=== PATIENT | male | born 1970 | race American Indian/Alaskan Native ===

== ENCOUNTER 2016-05-26 21:58 | Emergency (ER) | payer SELFPAY ==
[~2016-05-26] VITALS: Ht 167.6 cm; Wt 68.0 kg
[~2016-05-26 21:58] MED LIST: AMOX500T2 PO; ASPI-480 PO; BACL10TA PO; CITA20TA4 GT; DULA1.5P SQ; FENO160T8 PO; HYDR-3714 PO; INSASP10V IV; INSU100I14 SQ; INSU100V5 SQ; LISI10TA2 PO; METF-380 PO; NAPR-243 PO; NAPR550T PO; PANT40TA PO; PRM25T PO; SAXA5TAB PO; SILD50TA; SIMV20TA3 PO; TRAM-21 PO; baclofen; gabapentin; levemir; lisinopril; metformin; novolog; pantoprazole; simvastatin
--- OUTSIDE RECORDS SUMMARY | 2016-05-26 22:04 | XMS REPORT ---
Author Author EWELINA MENDOZA [facility] eClinicalWorks Address Unknown Phone Unavailable Care Team Providers Care Thread Singer Name Role Phone EWELINA MENDOZA CP Unavailable Allergies No Known Allergies Problems Problem Type Condition Code Onset Dates Condition Status Problem Diabetes E11.9 Active Problem Hypertension I10 Active Problem Major depressive disorder, single episode, severe F32.2 Active Problem Sleep apnea 780.57 Active Problem Degeneration of intervertebral disc, site unspecified 722.6 Active Problem Back pain M54.9 Active Problem Male erectile dysfunction, unspecified N52.9 Active Medications Medication Code System Code Instructions Start Date End Date Status Dosage Viagra [facility] [id number] 50 MG Orally Once a day 1 tablet as needed 30 minutes prior to intercourse Results No Known Results Summary Purpose eClinicalWorks Submission
[2016-05-27 00:22] LABS: BASOPHILS # (AUTO) 0.1 10^3/uL (0.0-0.1); BASOPHILS % (AUTO) 1 % (0-10); EOSINOPHILS # (AUTO) 0.3 10^3/uL (0.0-0.3); EOSINOPHILS % (AUTO) 3 % (0-10); LYMPHOCYTES # (AUTO) 2.2 X 10^3 (1.0-4.0); LYMPHOCYTES % (AUTO) 21 % (12-44); MEAN CORPUSCULAR HEMOGLOBIN 29 PG (25-34); MEAN CORPUSCULAR HGB CONC 36 G/DL (32-36); MEAN CORPUSCULAR VOLUME 83 FL (80-99); MEAN PLATELET VOLUME 9.5 FL (7.4-10.4); MONOCYTES # (AUTO) 0.8 X 10^3 (0.0-1.0); MONOCYTES % (AUTO) 8 % (0-12); NEUTROPHILS # (AUTO) 7.4 X 10^3 (1.8-7.8); NEUTROPHILS % (AUTO) 69 % (42-75); PLATELET COUNT 331 10^3/uL (130-400); RED BLOOD COUNT 4.69 10^6/uL (4.35-5.85); RED CELL DISTRIBUTION WIDTH 12.7 % (10.0-14.5); WHITE BLOOD COUNT 10.8 10^3/uL (4.3-11.0)
[2016-05-27 00:38] LABS: BAND NEUTROPHILS 0 %; BASOPHILS % (MANUAL) 0 %; EOSINOPHILS % (MANUAL) 2 %; LYMPHOCYTES % (MANUAL) 16 %; NEUTROPHILS % (MANUAL) 72 %
[2016-05-27 00:44] LABS: ALANINE AMINOTRANSFERASE 28 U/L (0-55); ALBUMIN 3.8 G/DL (3.2-4.5); ANION GAP 13 MMOL/L (5-14); ASPARTATE AMINO TRANSFERASE 21 U/L (5-34); BILIRUBIN,TOTAL 0.8 MG/DL (0.1-1.0); BLOOD UREA NITROGEN 16 MG/DL (7-18); BUN/CREATININE RATIO 21; CALCIUM 8.7 MG/DL (8.5-10.1); CARBON DIOXIDE 23 MMOL/L (21-32); CHLORIDE 99 MMOL/L (98-107); CREATININE SERUM 0.78 MG/DL (0.60-1.30); GFR ESTIMATED > 60; GLUCOSE 205 MG/DL (70-105); POTASSIUM 3.5 MMOL/L (3.6-5.0); SODIUM 135 MMOL/L (135-145); TOTAL PROTEIN 7.5 G/DL (6.4-8.2); hs C REACTIVE PROTEIN 5.51 MG/DL (0.00-0.50)
[2016-05-27 00:45] LABS: ERYTHROCYTE SEDIMENTATION RATE 37 MM/HR (0-15)
[2016-05-27 00:51] LABS: BILIRUBIN,URINE NEGATIVE (NEGATIVE); KETONES,URINE NEGATIVE (NEGATIVE); LEUKOCYTE ESTERASE ,URINE NEGATIVE (NEGATIVE); NITRITE,URINE NEGATIVE (NEGATIVE); PH,URINE 5 (5-9); PROTEIN,URINE 1+ (NEGATIVE); UROBILINOGEN,URINE NORMAL (NORMAL)
[2016-05-27] MEDS ORDERED: NAPROXEN 250 MG (NAPROSYN) TABLET PO STA (01:24)
[2016-05-27] MEDS ORDERED: LEVOFLOXACIN 500 MG TAB (LEVAQUIN) PO STA (01:24)
--- NOTE | 2016-05-27 01:29 | ED General ---
General Chief Complaint: General Problems/Pain Stated Complaint: L SIDE/RIB PAIN/R KNEE PAIN Nursing Triage Note: Patient advises he has been experiencing left sided rib pain and knee pain and has had a non productive cough that began last night. He advises in Feb. Trisha observed a spot on his lung but he has not followed up with anyone. Nursing Sepsis Screen: No Definite Risk Source of Information: Patient Exam Limitations: No Limitations History of Present Illness Time Seen by Provider: 01:00 Initial Comments Here with report of left-sided rib pain and overall feeling bad. He got out of [facility] a week ago. Does admit to using methamphetamine by injection 2 days ago. Reports that he is been coughing a lot and has had some fever. Denies nausea or vomiting. Had some other complaints listed in triage but not discussed with me. Also complains of some left knee pain. Usually follows up at the clinic. Timing/Duration: 3-4 Days Severity: Moderate Associated Systoms: Chest Pain Cough Fever/ChillsNo Nausea/Vomiting, No Shortness of Air, Weakness Allergies and Home Medications Allergies Coded Allergies: No Known Drug Allergies (Unverified , 07/17/13) Home Medications Amoxicillin 500 Mg Tablet #20 500 MG PO TID Prescribed by: ANNA JIMENEZ on 09/14/152305 Naproxen Sodium 550 Mg Tablet #10 550 MG PO BID PRN PRN PAIN Prescribed by: ANNA JIMENEZ on 09/14/152305 Constitutional: see HPINo chills, fever EENTM: no symptoms reported Respiratory: coughNo short of breath Cardiovascular: no symptoms reported Gastrointestinal: no symptoms reportedNo nausea, No vomiting Genitourinary: no symptoms reported Musculoskeletal: see HPI joint painNo muscle pain Skin: no symptoms reported Psychiatric/Neurological: No Symptoms Reported All Other Systems Reviewed Negative Unless Noted: Yes Past Ushbphp-Iewwxr-Jrqrjq Hx Patient Social History Alcohol Use: Denies Use Recreational Drug Use: Yes (methamphetamine) Smoking Status: Never a Smoker Recent Foreign Travel: No Contact w/Someone Who Travel: No Recent Infectious Disease Expo: No Recent Hopitalizations: No Immunizations Up To Date Tetanus Booster (TDap): Less than 5yrs PED Vaccines UTD: Yes Date of Pneumonia Vaccine: Nov 20, 2009 Date of Influenza Vaccine: Nov 23, 2013 Seasonal Allergies Seasonal Allergies: No Surgeries HX Surgeries: Yes (heart cath) Surgeries: Appendectomy, Gallbladder Respiratory Hx Respiratory Disorders: Yes Respiratory Disorders: Chronic Bronchitis Cardiovascular Hx Cardiac Disorders: Yes Cardiac Disorders: High Cholesterol, Hypertension Neurological Hx Neurological Disorders: No Reproductive System Hx Reproductive Disorders: No Genitourinary Hx Genitourinary Disorders: No Gastrointestinal Hx Gastrointestinal Disorders: No Musculoskeletal Hx Musculoskeletal Disorders: Yes Musculoskeletal Disorders: Arthritis, Chronic Back Pain Endocrine Hx Endocrine Disorders: Yes Endocrine Disorders: Diabetes, Insulin dep HEENT HX ENT Disorders: No Cancer Hx Cancer: No Psychosocial Hx Psychiatric Problems: Yes Behavioral Health Disorders: Depression Integumentary HX Skin/Integumentary Disorder: No Blood Transfusions Hx Blood Disorders: No Adverse Reaction to a Blood Tr: No Reviewed Nursing Assessment Reviewed/Agree w Nursing PMH: Yes Family Medical History Family Medial History: Cardiovascular disease 19 MOTHER (open heart in june) Diabetes mellitus 19 MOTHER FH: kidney disease G8 SISTER Hypercholesterolemia 19 MOTHER Hypertension 19 MOTHER Physical Exam Vital Signs Vital Sign - Last 12Hours 05/26/16 23:21 Pulse 86 Resp 14 B/P 109/65 Capillary Refill : Less Than 3 Seconds General Appearance: No Apparent Distress WD/WN HEENT: PERRL/EOMI Pharynx Normal Neck: Non Tender Supple Respiratory: Lungs Clear Normal Breath Sounds Other (tender to left lateral lower chest wall) Cardiovascular: Regular Rate, Rhythm No Murmur Gastrointestinal: Non Tender Soft Back: Normal Inspection No CVA Tenderness No Vertebral Tenderness Extremity: Normal Range of Motion Non Tender Other (walks without difficulty) Neurologic/Psychiatric: Alert Oriented x3 Skin: Normal Color Warm/Dry Focused Exam Lactic Acid Level Laboratory Tests Test 05/27/16 00:16 Alanine Aminotransferase (ALT/SGPT) 28U/L (0-55) Albumin 3.8G/DL (3.2-4.5) Alkaline Phosphatase 87U/L (40-136) Anion Gap 13MMOL/L (5-14) Aspartate Amino Transf (AST/SGOT) 21U/L (5-34) BUN/Creatinine Ratio 21 Blood Urea Nitrogen 16MG/DL (7-18) C-Reactive Protein High Sensitivity 5.51MG/DL (0.00-0.50) H Calcium Level 8.7MG/DL (8.5-10.1) Carbon Dioxide Level 23MMOL/L (21-32) Chloride Level 99MMOL/L (98-107) Creatinine 0.78MG/DL (0.60-1.30) Estimat Glomerular Filtration Rate > 60 Glucose Level 205MG/DL (70-105) H Potassium Level 3.5MMOL/L (3.6-5.0) L Sodium Level 135MMOL/L (135-145) Total Bilirubin 0.8MG/DL (0.1-1.0) Total Protein 7.5G/DL (6.4-8.2) Progress/Results/Core Measures Results/Orders Lab Results Laboratory Tests Test 05/27/16 00:16 05/27/16 00:35 Range/Units Alanine Aminotransferase (ALT/SGPT) 28 0-55 U/L Albumin 3.8 3.2-4.5 G/DL Alkaline Phosphatase 87 40-136 U/L Anion Gap 13 5-14 MMOL/L Aspartate Amino Transf (AST/SGOT) 21 5-34 U/L BUN/Creatinine Ratio 21 Band Neutrophils 0 % Basophils # (Auto) 0.1 0.0-0.1 10^3/uL Basophils % (Manual) 0 % Basophils (%) (Auto) 1 0-10 % Blood Morphology Comment NORMAL Blood Urea Nitrogen 16 7-18 MG/DL C-Reactive Protein High Sensitivity 5.51 H 0.00-0.50 MG/DL Calcium Level 8.7 8.5-10.1 MG/DL Carbon Dioxide Level 23 21-32 MMOL/L Chloride Level 99 98-107 MMOL/L Creatinine 0.78 0.60-1.30 MG/DL Eosinophils # (Auto) 0.3 0.0-0.3 10^3/uL Eosinophils % (Manual) 2 % Eosinophils (%) (Auto) 3 0-10 % Erythrocyte Sedimentation Rate 37 H 0-15 MM/HR Estimat Glomerular Filtration Rate > 60 Glucose Level 205 H 70-105 MG/DL Hematocrit 39 L 40-54 % Hemoglobin 13.8 13.3-17.7 G/DL Lymphocytes # (Auto) 2.2 1.0-4.0 X 10^3 Lymphocytes % (Manual) 16 % Lymphocytes (%) (Auto) 21 12-44 % Mean Corpuscular Hemoglobin 29 25-34 PG Mean Corpuscular Hemoglobin Concent 36 32-36 G/DL Mean Corpuscular Volume 83 80-99 FL Mean Platelet Volume 9.5 7.4-10.4 FL Monocytes # (Auto) 0.8 0.0-1.0 X 10^3 Monocytes % (Manual) 10 % Monocytes (%) (Auto) 8 0-12 % Neutrophils # (Auto) 7.4 1.8-7.8 X 10^3 Neutrophils % (Manual) 72 % Neutrophils (%) (Auto) 69 42-75 % Platelet Count 331 130-400 10^3/uL Potassium Level 3.5 L 3.6-5.0 MMOL/L Red Blood Count 4.69 4.35-5.85 10^6/uL Red Cell Distribution Width 12.7 10.0-14.5 % Sodium Level 135 135-145 MMOL/L Total Bilirubin 0.8 0.1-1.0 MG/DL Total Protein 7.5 6.4-8.2 G/DL White Blood Count 10.8 4.3-11.0 10^3/uL Ur Tricyclic Antidepressants Screen NEGATIVE NEGATIVE Urine Amphetamines Screen POSITIVE H NEGATIVE Urine Bacteria TRACE /HPF Urine Barbiturates Screen NEGATIVE NEGATIVE Urine Benzodiazepines Screen NEGATIVE NEGATIVE Urine Bilirubin NEGATIVE NEGATIVE Urine Cannabinoids Screen NEGATIVE NEGATIVE Urine Casts NONE /LPF Urine Clarity CLEAR Urine Cocaine Screen NEGATIVE NEGATIVE Urine Color YELLOW Urine Crystals NONE /LPF Urine Culture Indicated NO Urine Glucose (UA) 3+ H NEGATIVE Urine Ketones NEGATIVE NEGATIVE Urine Leukocyte Esterase NEGATIVE NEGATIVE Urine Methadone Screen NEGATIVE NEGATIVE Urine Methamphetamines Screen POSITIVE H NEGATIVE Urine Mucus SMALL H /LPF Urine Nitrite NEGATIVE NEGATIVE Urine Opiates Screen NEGATIVE NEGATIVE Urine Oxycodone Screen NEGATIVE NEGATIVE Urine Phencyclidine Screen NEGATIVE NEGATIVE Urine Propoxyphene Screen NEGATIVE NEGATIVE Urine Protein 1+ H NEGATIVE Urine RBC NONE /HPF Urine RBC (Auto) NEGATIVE NEGATIVE Urine Specific B[place]orn 1.015 L 1.016-1.022 Urine Squamous Epithelial Cells 2-5 /HPF Urine Urobilinogen NORMAL NORMAL MG/DL Urine WBC NONE /HPF Urine pH 5 5-9 My Orders Orders-NE BURNETT MD Chest Pa/Lat (2 View) (05/27/16 00:04) Cbc And Manual Diff (05/27/16 00:04) Comprehensive Metabolic Panel (05/27/16 00:04) Ua Culture If Indicated (05/27/16 00:04) Drug Screen Stat (Urine) (05/27/16 00:04) Erythrocyte Sedimentation Rate (05/27/16 00:04) Hs C Reactive Protein (05/27/16 00:04) Levofloxacin Tablet (Levaquin Tablet) (05/27/16 01:24) Naproxen Tablet (Naprosyn Tablet) (05/27/16 01:24) Vital Signs/I&O Vital Sign - Last 12Hours 05/26/16 23:21 Pulse 86 Resp 14 B/P 109/65 Blood Pressure Mean: 80 Progress Note : Progress Note Seen and evaluated. Checks x-ray, labs and UA ordered. UDS ordered. I did discuss with the patient about methamphetamine use. Chest x-ray shows concerning finding for possible basilar pneumonia. Levaquin 500 mg by mouth. Naprosyn 500 mg by mouth for pain. I did discuss the case with Dr. Anderson. She will assist in cosigning prescriptions at clinic for antibiotics and Naprosyn. Discharged home with return precautions. Patient verbalize understanding instructions and agreement with plan. Diagnostic Imaging Diagonstic Imaging: Xray Plain Films/CT/US/NM/MRI: chest Comments Left basilar infiltrate Reviewed: Reviewed by Me Departure Impression Impression: Primary Impression: Pneumonia Qualified Code: J18.1 - Lobar pneumonia, unspecified organism Additional Impression: Knee pain, left Qualified Code: M25.562 - Pain in left knee Disposition: 01 HOME, SELF-CARE Condition: Improved Departure-Patient Inst. Decision time for Depature: 01:45 Referrals: EWELINA MENDOZA MD (PCP/Family) Primary Care Physician Patient Instructions: Community-Acquired Pneumonia in Adults, Knee Pain (DC) Add. Discharge Instructions: All discharge instructions reviewed with patient and/or family. Voiced understanding. Go to clinic in the morning to get prescriptions filled. Make appointment at clinic for one week. Return for worse pain, fever, vomiting, weakness, breathing problems or other concerns as needed. Do not use methamphetamine. Drink plenty of fluids. Take medications as directed. Scripts Naproxen (Naprosyn)500 Mg [id number] Mg PO BID PRN PAIN #30 TAB Prov:NE BURNETT MD 05/27/16 Levofloxacin 500 Mg [id number] Mg PO DAILY #6 TAB Prov:NE BURNETT MD 05/27/16 Copy Copies To 1: HEATHER ANDERSON MD, TIMOTHY D MD May 27, 2016 01:29
[2016-05-27] MEDS ORDERED: LEVO500T80 PO (01:46)
[2016-05-27] MEDS ORDERED: NAPR500T PO (01:46)
[2016-05-27 01:49] VITALS: BP 100/70
--- NOTE | 2016-05-27 07:33 | Diagnostic Imaging Report ---
EXAM: CHEST PA/LAT (2 VIEW) INDICATION: Cough. Left rib pain. COMPARISON: Chest radiograph 04/05/2015 FINDINGS: Normal heart size and pulmonary vascularity. Subtle airspace opacity in the left lower lobe posteriorly, seen best on the lateral view. No pleural effusion or pneumothorax. Degenerative changes in the spine. Cholecystectomy clips. IMPRESSION: Subtle airspace opacity in the left lower lobe posteriorly suspicious for pneumonitis. Dictated by: Dictated on workstation # [id number]
== END 2016-05-27 01:49 | disposition home or self-care (01) ==
LOC: EDUNIT# 21:58 → ER 22:00
DX: J18.9 Pneumonia, unspecified organism (principal); M25.562 Pain in left knee; F15.10 Other stimulant abuse, uncomplicated; I10 Essential (primary) hypertension
CPT/HCPCS: 36415; 71020; 80053; 80306; 81000; 85007; 85027; 85652; 86141; 99283

== ENCOUNTER 2016-09-10 17:32 | Emergency (ER) | payer SELFPAY ==
[~2016-09-10] VITALS: Ht 172.7 cm; Wt 102.1 kg
[~2016-09-10 17:32] MED LIST changes: +LEVO500T80 PO; +NAPR500T PO
[2016-09-10] MEDS ORDERED: IBUPROFEN 800 MG (MOTRIN) TAB PO STA (18:38)
--- NOTE | 2016-09-10 18:38 | ED Upper Extremity ---
General Chief Complaint: Upper Extremity Stated Complaint: PT FELL/RT HAND PAIN/LT SHOULDER PAIN Nursing Triage Note: pt reports about 4 hours travel pta he fell on a dumpster and injured his r hand and l shoulder. pt denies hitting head or loc. Nursing Sepsis Screen: No Definite Risk Source: patient, other (friend) Exam Limitations: no limitations History of Present Illness Time seen by provider: 18:33 Initial Comments Patient presents approximately 5 hours after a fall while walking into a dumpster where he punched the dumpster with his right hand and landed against his left shoulder is having a significant amount of pain in his right hand and left shoulder with some swelling in his right hand. He is not having any nausea vomiting or diarrhea. He has not been drinking or using any drugs. He states he used to drink 20 years ago but not now. He does not smoke. He is not in a fight and had no trauma or wounds elsewhere. Allergies and Home Medications Allergies Coded Allergies: No Known Drug Allergies (Unverified , 07/17/13) Home Medications Amoxicillin 500 Mg Tablet, 500 MG PO TID, #20 Prescribed by: ANNA JIMENEZ on 09/14/152305 Levofloxacin 500 Mg Tablet, 500 MG PO DAILY, #6 Prescribed by: NE BURNETT on 05/27/16 0146 Naproxen 500 Mg Tablet, 500 MG PO BID PRN for PAIN, #30 Prescribed by: NE BURNETT on 05/27/16 0146 Naproxen Sodium 550 Mg Tablet, 550 MG PO BID PRN for PAIN, #10 Prescribed by: ANNA JIMENEZ on 09/14/156 Constitutional: No chills, No diaphoresis Respiratory: No cough, No phlegm Cardiovascular: No chest pain, No edema Gastrointestinal: No abdominal pain, No constipation, No nausea Genitourinary: No dysuria, No frequency, No pain Skin: No pruritus, No rash Psychiatric/Neurological: Denies Anxiety, Denies Depressed Past Cgulvhj-Ryteil-Ywtebu Hx Patient Social History Alcohol Use: Denies Use Recreational Drug Use: No Smoking Status: Never a Smoker Recent Foreign Travel: No Contact w/Someone Who Travel: No Recent Infectious Disease Expo: No Recent Hopitalizations: No Immunizations Up To Date Tetanus Booster (TDap): Less than 5yrs PED Vaccines UTD: Yes Date of Pneumonia Vaccine: Nov 20, 2009 Date of Influenza Vaccine: Nov 23, 2013 Seasonal Allergies Seasonal Allergies: No Surgeries HX Surgeries: Yes (heart cath) Surgeries: Appendectomy, Gallbladder Respiratory Hx Respiratory Disorders: Yes Respiratory Disorders: Chronic Bronchitis Cardiovascular Hx Cardiac Disorders: Yes Cardiac Disorders: High Cholesterol, Hypertension Neurological Hx Neurological Disorders: No Reproductive System Hx Reproductive Disorders: No Genitourinary Hx Genitourinary Disorders: No Gastrointestinal Hx Gastrointestinal Disorders: No Musculoskeletal Hx Musculoskeletal Disorders: Yes Musculoskeletal Disorders: Arthritis, Chronic Back Pain Endocrine Hx Endocrine Disorders: Yes Endocrine Disorders: Diabetes, Insulin dep HEENT HX ENT Disorders: No Cancer Hx Cancer: No Psychosocial Hx Psychiatric Problems: Yes Behavioral Health Disorders: Depression Integumentary HX Skin/Integumentary Disorder: No Blood Transfusions Hx Blood Disorders: No Adverse Reaction to a Blood Tr: No Family Medical History Family Medial History: Cardiovascular disease 19 MOTHER (open heart in june) Diabetes mellitus 19 MOTHER FH: kidney disease G8 SISTER Hypercholesterolemia 19 MOTHER Hypertension 19 MOTHER Physical Exam Vital Signs Vital Sign - Last 12Hours 09/10/16 18:27 Temp 99.4 Pulse 94 Resp 16 B/P (MAP) 124/114 Pulse Ox 98 Capillary Refill : Less Than 3 Seconds General Appearance: WD/WN, no apparent distress HEENT: PERRL/EOMI, pharynx normal Neck: non-tender, normal inspection Cardiovascular: normal peripheral pulses, regular rate, rhythm Respiratory: chest non-tender, lungs clear Gastrointestinal: normal bowel sounds, non tender Back: normal inspection, no vertebral tenderness Shoulder: normal inspection, normal ROM, No deformity, No ecchymosis, soft tissue tenderness (left) Elbow/Forearm: normal inspection, non-tender Wrist: No bone tenderness, No deformity, Yes soft tissue tenderness (right) Hand: laceration, limited ROM, nail injury, soft tissue tenderness (right), swelling Neurologic/Tendon: normal sensation, normal motor functions, normal tendon functions, responds to pain, no evidence tendon injury Neurologic/Psychiatric: no motor/sensory deficits, alert, oriented x 3 Skin: warm/dry, ecchymosis (right hand) Progress/Results/Core Measures Results/Orders My Orders Orders - POWER ARELLANO Shoulder, Left, 3 Views (09/10/16 18:38) Clavicle, Left (09/10/16 18:38) Wrist, Right, 3 Views Or More (09/10/16 18:38) Hand, Right, 3 Views (09/10/16 18:38) Ibuprofen Tablet (Motrin Tablet) (09/10/16 18:38) Vital Signs/I&O Vital Sign - Last 12Hours 09/10/16 18:27 Temp 99.4 Pulse 94 Resp 16 B/P (MAP) 124/114 Pulse Ox 98 Blood Pressure Mean: 117 Progress Note : Time: 21:06 Progress Note Boxer fracture; mildly dorsally angulated so we'll place him in a right ulnar gutter splint and have him call for states or so in the morning. Diagnostic Imaging Diagonstic Imaging: Xray Plain Films/CT/US/NM/MRI: other (left shoulder and left clavicle) Comments [facility] [place], [place] NAME: ADE THOMASON [facility] REC#: [id number] PT STATUS: REG ER : 1970 PHYSICIAN: POWER ARELLANO MD ADMIT DATE: 09/10/16/ER Draft Date of Exam:09/10/16 CLAVICLE, LEFT INDICATION: Fall, trauma. EXAMINATION: Left clavicle, 09/10/2016. FINDINGS: Two views of the clavicle. The acromioclavicular joint appears to be intact. Spurring is noted but no dislocations or fractures are visualized. The linear density at the greater tuberosity is seen and described on the separate shoulder films. IMPRESSION: No acute fracture along the clavicle with degenerative findings as discussed above. Dictated on workstation # [id number] Dict: 09/10/161931 Trans: 09/10/161941 [facility] [id number] Interpreted by: ALEXA ORO MD Electronically signed by: [facility] [place], [place] NAME: ADE THOMASON [facility] REC#: [id number] PT STATUS: REG ER : 1970 PHYSICIAN: POWER ARELLANO MD ADMIT DATE: 09/10/16/ER Draft Date of Exam:09/10/16 SHOULDER, LEFT, 3 VIEWS INDICATION: Fell 4 hours ago. Hit shoulder. EXAMINATION: Left shoulder dated 09/10/2016 FINDINGS: Three views of the shoulder Linear density immediately adjacent to the greater tuberosity is noted which appears to represent likely calcific tendinitis, less likely small avulsion fracture fragment. The remaining humerus is unremarkable. The acromioclavicular joint demonstrates some narrowing and spurring. The visualized left lung is clear. IMPRESSION: 1. Degenerative findings as described with a linear density at the greater tuberosity nonspecific; see above discussion. Dictated on workstation # [id number] Dict: 09/10/161929 Trans: 09/10/161938 [facility] [id number] Interpreted by: ALEXA ORO MD Electronically signed by: Reviewed: Reviewed by Me Diagonstic Imaging: Xray Plain Films/CT/US/NM/MRI: hand (right wrist), other Comments Distal metacarpal fracture with mild dorsal angulation. No point tenderness at the site of an old fracture on the distal interphalangeal joint noted in radiology report. [facility] [place], [place] NAME: ADE THOMASON Jaelyn [facility] REC#: [id number] PT STATUS: REG ER : 1970 PHYSICIAN: POWER ARELLANO MD ADMIT DATE: 09/10/16/ER Draft Date of Exam:09/10/16 HAND, RIGHT, 3 VIEWS INDICATION: Fell about four hours ago. Right hand pain. EXAMINATION: Right hand dated 09/10/2016. FINDINGS: Three views of the hand. There is a fracture involving the distal aspect of the fifth metacarpal. This does not definitely extend into the adjacent intra-articular joint space. The fracture site demonstrates mild apex dorsal angulation. No definite other fractures are seen. Degenerative findings are seen throughout the mid carpal bones and at the first metacarpophalangeal joint with large spurs at this joint also noted. IMPRESSION: 1. Acute-appearing fracture at the distal aspect of the fifth metacarpal with remaining osseous structures demonstrating chronic change as discussed above. There is an osseous fragment at the dorsum of the distal interphalangeal joint of the fifth digit likely old, correlate for any point tenderness. Dictated on workstation # [id number] Dict: 09/10/161930 Trans: 09/10/161938 [id number] Interpreted by: ALEXA ORO MD Electronically signed by: [facility], [facility] [place], [place] NAME: ADE THOMASON [facility] REC#: [id number] PT STATUS: REG ER : 1970 PHYSICIAN: POWER ARELLANO MD ADMIT DATE: 09/10/16/ER Draft Date of Exam:09/10/16 WRIST, RIGHT, 3 VIEWS OR MORE INDICATION: Fell about 4 hours ago. Hit shoulder. Wrist and hand pain. EXAMINATION: Right wrist and hand, 09/10/2016. FINDINGS: Three views of the hand and wrist. There is a fracture through the distal aspect of the fifth metacarpal. This appears fairly well aligned along its visualized aspects on this examination. Degenerative findings are seen throughout the mid carpal bones with spurring noted. Severe degenerative change is seen at the first metacarpophalangeal joint space. IMPRESSION: Acute appearing fracture involving the distal fifth metacarpal with other findings as described. Dictated on workstation # [id number] Dict: 09/10/161928 Trans: 09/10/161940 [facility] [id number] Interpreted by: ALEXA ORO MD Electronically signed by: Reviewed: Reviewed by Me Consults Consults : Consulting Physician: SARA BURRIS MD Consults Notes 2044: Called dropped. Made contact at 210. Recommends the patient call for states or so in the morning and get an appointment sometime within the next week. Ulnar gutter would be okay. Pain management. Departure Impression Impression: Primary Impression: Fracture of hand Qualified Codes: S62.91XA - Unspecified fracture of right wrist and hand, initial encounter for closed fracture Additional Impression: Left shoulder pain Qualified Codes: M25.512 - Pain in left shoulder Disposition: 01 HOME, SELF-CARE Condition: Improved Departure-Patient Inst. Decision time for Depature: 21:07 Referrals: NO,LOCAL PHYSICIAN (PCP) Primary Care Physician Patient Instructions: Hand Fracture (DC) Add. Discharge Instructions: You have a fracture in your right hand just below your pinky but has been stabilized with a splint. You will need to call for state [facility] in the morning after 9:00 AM and requests an appointment with them for a boxer's fracture. You should probably try and get in with them sometime within a week. Their phone number is [phone]. For pain you should place ice over the hand up to 4 times daily for 20 minutes at a time. Elevate the hand, wear the splint and use Tylenol or ibuprofen. Tylenol 1000 mg 3 times a day and he can also use ibuprofen 800 mg 3 times a day. If this is not sufficient then you can also use the [place]. If you use [place] it may cause constipation so you should also use a laxative such as MiraLAX.. All discharge instructions reviewed with patient and/or family. Voiced understanding. Scripts Hydrocodone/Acetaminophen (Hydrocodon -Acetaminophen 5-325) 1 Each Tablet 1 EACH PO Q6H Y for BREAKTHROUGH PAIN, #15 TAB 0 Refills Prov: POWER ARELLANO 09/10/16 POWER ARELLANO Sep 10, 2016 18:38
--- OUTSIDE RECORDS SUMMARY | 2016-09-10 19:10 | XMS REPORT ---
Author Author EWELINA MENDOZA [facility] eClinicalWorks Address Unknown Phone Unavailable Care Team Providers Care Dietetics Director Name Role Phone EWELINA MENDOZA CP Unavailable [...] Start Date End Date Status Dosage Viagra [facility] [id number] 50 MG Orally Once a day 1 tablet as needed 30 minutes prior to intercourse Results No Known Results Summary Purpose eClinicalWorks Submission
--- OUTSIDE RECORDS SUMMARY | 2016-09-10 19:10 | XMS REPORT ---
Author Author IVONNE GOMEZ [facility] eClinicalWorks Address Unknown Phone Unavailable Care Team Providers Care Computer Lab Assistant Name Role Phone IVONNE GOMEZ CP Unavailable Allergies No Known Allergies Problems Problem Type Condition Code Onset Dates Condition Status Problem Pain in joint, shoulder region 719.41 Active Problem Other chronic pain 338.29 Active Problem Rheumatoid arthritis 714.0 Active Problem Folliculitis 704.8 Active Problem Intermittent chest pain 786.50 Active Problem Midline low back pain with sciatica, sciatica laterality unspecified M54.40 Active Problem Degeneration of intervertebral disc, site unspecified 722.6 Active Problem Lumbago 724.2 Active Problem Sleep apnea 780.57 Active Problem Diabetes type 2, controlled 250.00 Active Medications No Known Medications Results No Known Results Summary Purpose eClinicalWorks Submission
--- OUTSIDE RECORDS SUMMARY | 2016-09-10 19:11 | XMS REPORT ---
Author Author EWELINA MENDOZA Organization eClinicalWorks Address Unknown Phone Unavailable Care Team Providers Care J2Ee Engineer Name Role Phone EWELINA MENDOZA Unavailable Allergies No Known Allergies Problems Problem Type Condition Code Onset Dates Condition Status Problem Diabetes E11.9 Active Problem Hypertension I10 Active Problem Major depressive disorder, single episode, severe F32.2 Active Problem Sleep apnea 780.57 Active Problem Degeneration of intervertebral disc, site unspecified 722.6 Active Problem Back pain M54.9 Active Problem Male erectile dysfunction, unspecified N52.9 Active Medications No Known Medications Results No Known Results Summary Purpose eClinicalWorks Submission
--- OUTSIDE RECORDS SUMMARY | 2016-09-10 19:11 | XMS REPORT ---
Author EWELINA Santamaria [facility] eClinicalWorks Address Unknown Phone Unavailable Care Team Providers Care Local Operator Name Role Phone EWELINA MENDOZA CP Unavailable Allergies, Adverse Reactions, Alerts Substance Reaction Event Type N.K.D.A. Info Not Available Non Drug Allergy Problems Problem Type Condition Code Onset Dates Condition Status Assessment Hypertension I10 Active Assessment Back pain M54.9 Active Problem Hypertension I10 Active Problem Back pain M54.9 Active Problem Diabetes E11.9 Active Problem Degeneration of intervertebral disc, site unspecified 722.6 Active Assessment Diabetes E11.9 Active Problem Male erectile dysfunction, unspecified N52.9 Active Problem Sleep apnea 780.57 Active Medications Medication Code System Code Instructions Start Date End Date Status Dosage Fenofibrate [facility] [address]-67 54 mg July 27, 2013 take 1 tablet ( 54 mg) by oral route once daily pantoprazole [facility] 0 40 mg July 27, 2013 take 1 tablet by Oral route 1 time per day Trulicity [facility] [address]-50 1.5 MG/0.5ML Subcutaneous 0.5 ml Hydrocodone-Acetaminophen [facility] [address]-26 5-325 MG Orally 2 times a day, prn Apr 06, 2015 1 tablet as needed Metformin HCl [facility] [address]-70 1000 MG Orally Twice a day 1 tablet with meals NovoLog [facility] [address]-10 100 unit/mL May 29, 2014 30-40 Units 3 times per day with meals Aspirin [facility] [address]-38 81 mg July 27, 2013 take 1 tablet (81 mg ) by oral route once daily citalopram [facility] 0 20 mg July 27, 2013 take 1 tablet (20 mg) by oral route once daily Lisinopril [facility] [address]-51 20 mg July 27, 2013 take 1 tablet (20 mg) by oral route once daily Viagra [facility] [address]-20 50 MG Orally Once a day Feb 22, 2015 1 tablet as needed 30 minutes prior to intercourse Levemir [facility] [address]-78 100 UNIT/ML May 29, 2014 83 Units 2 times per day Simvastatin [facility] [address]-32 40 mg July 27, 2013 take 1 tablet ( 40 mg) by oral route once daily in the evening Procedures Procedure Coding System Code Date MICROALBUMIN, SEMIQUANT CPT-4 96426 Apr 06, 2015 Office Visit, Est Pt., Level 3 CPT-4 65164 Apr 06, 2015 GLYCATED HEMOGLOBIN TEST CPT-4 14784 Apr 06, 2015 Vital Signs Date/Time: Apr 06, 2015 Temperature 97.7 F Weight 235.0 lbs Height 68 in BMI 35.73 Index Blood Pressure Diastolic 70 mmHg Blood Pressure Systolic 122 mmHg Cardiac Monitoring Heart Rate 88 bpm Results Name Result Date Reference Range Unit Abnormality Flag A1C (IN HOUSE) ----A1C IN HOUSE 9.1 20150406 4.3 - 5.6 % ----Previous A1c 8.0 [id number] ----Lot [id number] ----Exp date 20150406 MICROALBUMIN, URINE (IN HOUSE) ----A:C (IN HOUSE) <30mg/g [id number] ----CRE 300mg/dL [id number] ----Color [place] [id number] ----ALB 80mg/L [id number] ----Exp date [id number] ----Clarity Clear [id number] ----Lot # [id number] Summary Purpose eClinicalWorks Submission
--- OUTSIDE RECORDS SUMMARY | 2016-09-10 19:11 | XMS REPORT ---
Author Author ISIAH BELLO [facility] eClinicalWorks Address Unknown Phone Unavailable Care Team Providers Care Box Lining Machine Operator Name Role Phone ISIAH BELLO CP Unavailable Allergies No Known Allergies Problems Problem Type Condition Code Onset Dates Condition Status Problem Rheumatoid arthritis 714.0 Active Problem Lumbago 724.2 Active Problem Other chronic pain 338.29 Active Assessment Male erectile dysfunction, unspecified N52.9 Active Problem Pain in joint, shoulder region 719.41 Active Problem Midline low back pain with sciatica, sciatica laterality unspecified M54.40 Active Problem Folliculitis 704.8 Active Problem Male erectile dysfunction, unspecified N52.9 Active Problem Diabetes type 2, controlled 250.00 Active Problem Degeneration of intervertebral disc, site unspecified 722.6 Active Problem Intermittent chest pain 786.50 Active Problem Sleep apnea 780.57 Active Medications Medication Code System Code Instructions Start Date End Date Status Dosage Viagra [facility] [address]-89 50 MG Orally Once a day Feb 22, 2015 1 tablet as needed 30 minutes prior to intercourse Results No Known Results Summary Purpose eClinicalWorks Submission
--- OUTSIDE RECORDS SUMMARY | 2016-09-10 19:11 | XMS REPORT ---
Author Author ISIAH BELLO [facility] eClinicalWorks Address Unknown Phone Unavailable Care Team Providers Care Supervisor Beet End Name Role Phone ISIAH BELLO CP Unavailable Allergies No Known Allergies Problems Problem Type Condition ICD-9 Code Onset Dates Condition Status Problem Rheumatoid arthritis 714.0 Active Problem Pain in joint, shoulder region 719.41 Active Problem Intermittent chest pain 786.50 Active Problem Sleep apnea 780.57 Active Problem Folliculitis 704.8 Active Problem Lumbago 724.2 Active Problem Other chronic pain 338.29 Active Problem Diabetes type 2, controlled 250.00 Active Problem Degeneration of intervertebral disc, site unspecified 722.6 Active Medications Medication Code System Code Instructions Start Date End Date Status Dosage Levemir [facility] [address]-48 100 UNIT/ML May 29, 2014 83 Units 2 times per day Results No Known Results Summary Purpose eClinicalWorks Submission
--- OUTSIDE RECORDS SUMMARY | 2016-09-10 19:11 | XMS REPORT ---
Author Author ISIAH BELLO [facility] eClinicalWorks Address Unknown Phone Unavailable Care Team Providers Care Box Sealing Inspector Name Role Phone ISIAH BELLO CP Unavailable [...]
--- OUTSIDE RECORDS SUMMARY | 2016-09-10 19:12 | XMS REPORT ---
Author Author ISIAH BELLO [facility] eClinicalWorks Address Unknown Phone Unavailable Care Team Providers Care Manager Security And Safety Name Role Phone ISIAH BELLO CP Unavailable Allergies No Known Allergies Problems Problem Type Condition Code Onset Dates Condition Status Problem Pain in joint, shoulder region 719.41 Active Problem Other chronic pain 338.29 Active Problem Rheumatoid arthritis 714.0 Active Assessment Midline low back pain with sciatica, sciatica laterality unspecified M54.40 Active Problem Folliculitis 704.8 Active Problem Intermittent [...]
--- OUTSIDE RECORDS SUMMARY | 2016-09-10 19:12 | XMS REPORT ---
Author Author ISIAH BELLO [facility] eClinicalWorks Address Unknown Phone Unavailable Care Team Providers Care Kitchen Operator Name Role Phone ISIAH BELLO CP [...] intervertebral disc, site unspecified 722.6 Active Medications No Known Medications Results No Known Results Summary Purpose eClinicalWorks Submission
--- OUTSIDE RECORDS SUMMARY | 2016-09-10 19:13 | XMS REPORT | Continuity of Care Document ---
Author Author [facility] Address Unknown Phone Unavailable Allergies Active Description Code Type Severity Reaction Onset Reported/Identified Relationship to Patient Clinical Status Yes NO NAME AVAILABLE [id number] DRUG N/A N/A Yes No Known Drug Allergies [id number] Drug Allergy Unknown N/ A 07/17/2013 Medications Medication Packaging Start Date Stop Date Route Dosage Sig ALUM T MAG HYDROXIDE-SIMETH 200-200-20 MG/5ML PO SUSP 06/17/2016 Oral 30 4 TIMES DAILY PRN TRAZODONE HCL 100 MG PO TABS 06/17/2016 Oral 100 BEDTIME PRN INFLUENZA VAC SPLIT QUAD 0.5 ML IM KAYLI 06/17/2016 Intramuscular 0.5 Prior to discharge OLANZAPINE 10 MG PO TBDP 06/17/2016 Oral 10 2 TIMES DAILY PRN ACETAMINOPHEN 325 MG PO TABS 06/17/2016 Oral 650 EVERY 6 HOURS PRN MAGNESIUM HYDROXIDE 400 MG/5ML PO SUSP 06/17/2016 Oral 30 DAILY PRN QUETIAPINE FUMARATE 25 MG PO TABS 06/17/2016 Oral 25 4 TIMES DAILY PRN GLUCAGON HCL (DIAGNOSTIC) 1 MG IJ SOLR 06/17/2016 Intramuscular 1 PRN DEXTROSE 50 % IV SOLN 06/17/2016 Intravenous 50 PRN GLUCOSE 40 % PO GEL 06/17/2016 Oral 15 PRN ATORVASTATIN CALCIUM 10 MG PO TABS 06/17/2016 Oral 10 DAILY INSULIN DETEMIR 100 UNIT/ML SC SOPN 06/17/2016 Subcutaneous 10 2 TIMES DAILY METFORMIN HCL 500 MG PO TABS 06/18/2016 Oral 1000 2 TIMES DAILY WITH MEALS FLUOXETINE HCL 20 MG PO CAPS 06/18/2016 Oral 20 DAILY LISINOPRIL 10 MG PO TABS 06/18/2016 Oral 5 DAILY ASPIRIN 81 MG PO CHEW 06/18/2016 Oral 81 DAILY PANTOPRAZOLE SODIUM 40 MG PO TBEC 06/18/2016 Oral 40 DAILY INSULIN ASPART 100 UNIT/ML SC SOPN 06/18/2016 Subcutaneous 4 TIMES DAILY BEFORE MEALS & NIGHTLY INSULIN DETEMIR 100 UNIT/ML SC SOPN 06/18/2016 Subcutaneous 15 2 TIMES DAILY FLUOXETINE HCL 20 MG PO CAPS 06/19/2016 Oral 40 DAILY TRAZODONE HCL 50 MG PO TABS 06/19/2016 Oral 50 BEDTIME PRN OLANZAPINE 5 MG PO TBDP 06/19/2016 Oral 5 2 TIMES DAILY PRN INSULIN DETEMIR 100 UNIT/ML SC SOPN 06/19/2016 Subcutaneous 20 2 TIMES DAILY INSULIN DETEMIR 100 UNIT/ML SC SOPN 06/20/2016 Subcutaneous 8 ONCE INSULIN ASPART PROT T ASPART (70-30) 100 UNIT/ML SC SUPN 06/20/2016 Subcutaneous 34 2 TIMES DAILY BEFORE MEALS INSULIN DETEMIR 100 UNIT/ML SC SOPN 06/20/2016 Subcutaneous 28 2 TIMES DAILY INSULIN ASPART PROT T ASPART (70-30) 100 UNIT/ML SC [facility] 06/21/2016 Subcutaneous 38 2 TIMES DAILY BEFORE MEALS INFLUENZA VAC SPLIT QUAD 0.5 ML IM KAYLI 06/22/2016 Intramuscular 0.5 ONCE INSULIN ASPART PROT T ASPART (70-30) 100 UNIT/ML SC [facility] 06/23/2016 Subcutaneous 38 DAILY WITH DINNER QUETIAPINE FUMARATE 25 MG PO TABS 06/23/2016 Oral 50 BEDTIME INSULIN ASPART 100 UNIT/ML SC SOPN 06/24/2016 Subcutaneous 43 DAILY WITH BREAKFAST INSULIN ASPART PROT T ASPART (70-30) 100 UNIT/ML SC SUPN 06/24/2016 Subcutaneous 43 DAILY WITH BREAKFAST QUETIAPINE FUMARATE 100 MG PO TABS 06/24/2016 Oral 100 BEDTIME Problems Date Dx Coded Attending Type Code Diagnosis Diagnosed By 04/26/2013 TRIP HERNANDEZ APRN N 250.01 DIABETES MELLITUS WITHOUT MENTION OF COMPLICATION TYPE I [JUVENILE TYPE] NOT STATED UNCONTROLLED 04/26/2013 TRIP HERNANDEZ APRN 714.0 RHEUMATOID ARTHRITIS 04/26/2013 BHUMI DUBOIS APRN 250.01 DIABETES MELLITUS WITHOUT MENTION OF COMPLICATION TYPE I [JUVENILE TYPE] NOT STATED UNCONTROLLED 04/26/2013 BHUMI DUBOIS APRN 714.0 RHEUMATOID ARTHRITIS 04/26/2013 IVONNE GOMEZ DO 250.01 DIABETES MELLITUS WITHOUT MENTION OF COMPLICATION TYPE I [JUVENILE TYPE] NOT STATED UNCONTROLLED 04/26/2013 IVONNE GOMEZ DO 714.0 RHEUMATOID ARTHRITIS 04/26/2013 IVONNE GOMEZ DO 250.01 DIABETES MELLITUS WITHOUT MENTION OF COMPLICATION TYPE I [JUVENILE TYPE] NOT STATED UNCONTROLLED 04/26/2013 GOMEZ DO IVONNE K 714.0 RHEUMATOID ARTHRITIS 04/26/2013 PATRICIA LOVING IVONNE K 250.01 DIABETES MELLITUS WITHOUT MENTION OF COMPLICATION TYPE I [JUVENILE TYPE] NOT STATED UNCONTROLLED 04/26/2013 GOMEZ DO IVONNE K 714.0 RHEUMATOID ARTHRITIS 07/17/2013 GOPAL VALENTINE APRN Ot 780.79 OTH MALAISE FATIGUE 07/27/2013 BHUMI DUBOIS APRN 719.41 PAIN IN JOINT INVOLVING SHOULDER REGION 07/27/2013 GOMEZ DO, IVONNE K 719.41 PAIN IN JOINT INVOLVING SHOULDER REGION 07/27/2013 GOMEZ DO, IVONNE K 719.41 PAIN IN JOINT INVOLVING SHOULDER REGION 07/27/2013 GOMEZ DO, IVONNE K 719.41 PAIN IN JOINT INVOLVING SHOULDER REGION 12/12/2013 GOMEZ DO, IVONNE K 338.29 OTHER CHRONIC PAIN 12/12/2013 GOMEZ DO, IVONNE K 724.2 LUMBAGO 12/12/2013 GOMEZ DO IVONNE K 338.29 OTHER CHRONIC PAIN 12/12/2013 GOMEZ DO IVONNE K 724.2 LUMBAGO 12/12/2013 GOMEZ DO, IVONNE K 338.29 OTHER CHRONIC PAIN 12/12/2013 GOMEZ DO, IVONNE K 724.2 LUMBAGO 04/16/2014 JERSON LOVING YURI K Ot 250.02 DIAB OPAL WO COMPL, TYPE II OR UNSPEC TY 04/16/2014 JERSON LOVING YURI K Ot 724.2 LUMBAGO 04/16/2014 JERSON LOVING YURI K Ot V15.81 HX OF PAST NONCOMPLIANCE 05/08/2014 ROSITA GOMEZ DOA K 250.00 DIABETES MELLITUS WITHOUT MENTION OF COMPLICATION TYPE II OR UNSPECIFIED TYPE NOT STATED UNCONTROLLED 05/08/2014 GOMEZ DO IVONNE K 722.6 DEGENERATION OF INTERVERTEBRAL DISC SITE UNSPECIFIED 06/05/2014 ALEK ROMERO Ot 719.41 06/22/2014 ALEK ROMERO Ot 719.41 06/23/2014 MARGARITA CARTY MD Ot 722.52 LUMB/LUMBOSAC DISC DEGEN 08/11/2014 ALEK ROMERO Ot 719.41 08/11/2014 ALEK ROMERO Ot 719.41 08/13/2014 JULIOCESAR MCNEAL MD Ot 250.00 DIAB OPAL WO COMPL, TYPE II OR UNSPEC TY 08/13/2014 JULIOCESAR MCNEAL MD Ot 278.01 MORBID OBESITY 08/13/2014 JULIOCESAR MCNEAL MD Ot 401.9 HYPERTENSION NOS 08/13/2014 JULIOCESAR MCNEAL MD Ot 722.52 LUMB/LUMBOSAC DISC DEGEN 08/13/2014 JULIOCESAR MCNEAL MD Ot 780.57 UNSPECIFIED SLEEP APNEA 08/13/2014 JULIOCESAR MCNEAL MD Ot 786.59 CHEST PAIN NEC 08/13/2014 JULIOCESAR MCNEAL MD Ot V58.67 LONG-TERM (CURRENT) USE OF INSULIN 08/13/2014 JULIOCESAR MCNEAL MD, Ot V58.69 OTH MED,LT,CURRENT USE 08/13/2014 JULIOCESAR MCNEAL MD Ot V85.41 BODY MASS INDEX 40.0-44.9, ADULT 08/14/2014 ALEK ROMERO Ot 719.41 10/05/2014 SAWYERCHRISTIAN WILLOUGHBY DO Ot 327.23 OBSTRUCTIVE SLEEP APNEA (ADULT) (PEDIATR 10/05/2014 SAWYERCHRISTIAN WILLOUGHBY DO Ot G47.33 OBSTRUCTIVE SLEEP APNEA (ADULT) (PEDIATR 10/13/2014 ALEK ROMERO Ot 719.41 10/13/2014 MARGARITA CARTY MD Ot 721.3 LUMBOSACRAL SPONDYLOSIS 10/13/2014 MARGARITA CARTY MD Ot 722.52 LUMB/LUMBOSAC DISC DEGEN 10/13/2014 MARGARITA CARTY MD Ot M47.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 10/13/2014 MARGARITA CARTY MD Ot V58.69 OTH MED,LT,CURRENT USE 11/03/2014 MARGARITA CARTY MD Ot 721.3 LUMBOSACRAL SPONDYLOSIS 11/03/2014 MARGARITA CARTY MD Ot 722.52 LUMB/LUMBOSAC DISC DEGEN 11/03/2014 MARGARITA CARTY MD Ot M47.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 11/03/2014 MARGARITA CARTY MD Ot V58.69 OTH MED,LT,CURRENT USE 11/30/2014 ALEK ROMERO Ot 719.41 12/22/2014 MARGARITA CARTY MD, Ot M51.36 04/05/2015 GOPAL VALENTINE APRN Ot R07.89 OTHER CHEST PAIN 04/05/2015 GOPAL VALENTINE APRN Ot Z53.29 PROC/TRTMT NOT CRD OUT BEC PT DECISION F 04/25/2015 MARGARITA ACRTY MD, Ot M51.36 09/14/2015 ALEK ROMERO Ot 719.41 JOINT PAIN-SHLDER 09/14/2015 MARGARITA CARTY MD Ot M51.36 OTHER INTERVERTEBRAL DISC DEGENERATION, 09/14/2015 ANNA JIMENEZ MD Ot K08.8 OTHER SPECIFIED DISORDERS OF TEETH AND S 09/14/2015 ANNA JIMENEZ MD Ot M25.511 PAIN IN RIGHT SHOULDER 09/17/2015 ANNA JIMENEZ MD Ot K08.8 OTHER SPECIFIED DISORDERS OF TEETH AND S 09/17/2015 ANNA JIMENEZ MD Ot M25.511 PAIN IN RIGHT SHOULDER 09/20/2015 ANNA JIMENEZ MD Ot K08.8 OTHER SPECIFIED DISORDERS OF TEETH AND S 09/20/2015 ANNA JIMENEZ MD Ot M25.511 PAIN IN RIGHT SHOULDER 10/08/2015 ALEK ROMERO Ot 719.41 JOINT PAIN-SHLDER 10/08/2015 MARGARITA CARTY MD Ot M51.36 OTHER INTERVERTEBRAL DISC DEGENERATION, 10/08/2015 MARGARITA CARTY MD Ot M19.011 PRIMARY OSTEOARTHRITIS, RIGHT SHOULDER 10/08/2015 MARGARITA CARTY MD Ot M19.012 PRIMARY OSTEOARTHRITIS, LEFT SHOULDER 10/08/2015 MARGARITA CARTY MD Ot M47.816 SPONDYLOSIS W/O MYELOPATHY OR RADICULOPA 10/08/2015 MARGARITA CARTY MD Ot M51.16 INTERVERTEBRAL DISC DISORDERS W RADICULO 05/26/2016 ALEK ROMERO Ot 719.41 JOINT PAIN-SHLDER 05/26/2016 MARGARITA CARTY MD Ot M51.36 OTHER INTERVERTEBRAL DISC DEGENERATION, 05/27/2016 ALEK ROMERO Ot 719.41 JOINT PAIN-SHLDER 05/27/2016 MARGARITA CARTY MD Ot M51.36 OTHER INTERVERTEBRAL DISC DEGENERATION, 05/27/2016 HORTENCIANE GONCALVES MD, Ot F15.10 OTHER STIMULANT ABUSE, UNCOMPLICATED 05/27/2016 NE BURNETT MD Ot I10 ESSENTIAL (PRIMARY) HYPERTENSION 05/27/2016 NE BURNETT MD, Ot J18.9 PNEUMONIA, UNSPECIFIED ORGANISM 05/27/2016 NE BURNETT MD Ot M25.562 PAIN IN LEFT KNEE 05/27/2016 NE BURNETT MD Ot R07.89 OTHER CHEST PAIN 05/27/2016 NE BURNETT MD, Ot F15.10 OTHER STIMULANT ABUSE, UNCOMPLICATED 05/27/2016 NE BRUNETT MD Ot I10 ESSENTIAL (PRIMARY) HYPERTENSION 05/27/2016 NE BURNETT MD, Ot J18.9 PNEUMONIA, UNSPECIFIED ORGANISM 05/27/2016 NE BURNETT MD, Ot M25.562 PAIN IN LEFT KNEE 05/27/2016 NE BURNETT MD Ot R07.89 OTHER CHEST PAIN Procedures Code Description Performed By Performed On LIVKAIDEN BRISEIDA MANRIQUE 07/28/2013 73834 ROUTINE VENIPUNCTURE 04/18/2014 78874 JOINT INJECTION- LARGE JOINT (SPECIFY MEDCIN DESCRIPTION) 04/18/2014 49554 A1C (IN-HOUSE) 4950 GFR CALC (RESULT ONLY) 04/18/2014 05455 CMP 04/18/2014 Results Test Result Range Capillary blood glucose measurement by glucometer (mass/volume) - 10/08/15 13: 07 Capillary blood glucose measurement by glucometer (mass/volume) 341 mg/dL 70-110 Blood CBC with ordered manual differential panel - 05/27/16 00:16 Blood leukocytes automated count (number/volume) 10.8 10*3/ uL 4.3-11.0 Blood erythrocytes automated count (number/volume) 4.69 10*6 /uL 4.35-5.85 Venous blood hemoglobin measurement (mass/volume) 13.8 g/dL 13.3-17.7 Blood hematocrit (volume fraction) 39 % 40-54 Automated erythrocyte mean corpuscular volume 83 [foz_us] 80-99 Automated erythrocyte mean corpuscular hemoglobin (mass per erythrocyte) 29 pg 25-34 Automated erythrocyte mean corpuscular hemoglobin concentration measurement ( mass/volume) 36 g/dL 32-36 Automated erythrocyte distribution width ratio 12.7 % 10.0-14.5 Automated blood platelet count (count/volume) 331 10*3/uL 130-400 Automated blood platelet mean volume measurement 9.5 [foz_us ] 7.4-10.4 Automated blood neutrophils/100 leukocytes 69 % 42-75 Automated blood lymphocytes/100 leukocytes 21 % 12-44 Blood monocytes/100 leukocytes 10 % NRG Automated blood eosinophils/100 leukocytes 3 % 0-10 Automated blood basophils/100 leukocytes 1 % 0-10 Blood neutrophils automated count (number/volume) 7.4 10*3 1.8-7.8 Blood lymphocytes automated count (number/volume) 2.2 10*3 1.0-4.0 Blood monocytes automated count (number/volume) 0.8 10*3 0.0-1.0 Automated eosinophil count 0.3 10*3/uL 0.0-0.3 Automated blood basophil count (count/volume) 0.1 10*3/uL 0.0-0.1 Manual blood segmented neutrophils/100 leukocytes 72 % NRG Blood band neutrophils/100 leukocytes 0 % NRG Manual blood lymphocytes/100 leukocytes 16 % NRG Manual eosinophils/100 leukocytes in nose 2 % NRG Manual blood basophils/100 leukocytes 0 % NRG Blood erythrocyte morphology finding identification NORMAL NRG Erythrocyte sedimentation rate by westergren method - 05/27/16 00:16 Erythrocyte sedimentation rate by westergren method 37 mm 0-15 Comprehensive metabolic panel - 05/27/16 00:16 Serum or plasma sodium measurement (moles/volume) 135 mmol/ L 135-145 Serum or plasma potassium measurement (moles/volume) 3.5 mmol/L 3.6-5.0 Serum or plasma chloride measurement (moles/volume) 99 mmol/ L 98-107 Carbon dioxide 23 mmol/L 21-32 Serum or plasma anion gap determination (moles/volume) 13 mmol/L 5-14 Serum or plasma urea nitrogen measurement (mass/volume) 16 mg/dL 7-18 Serum or plasma creatinine measurement (mass/volume) 0.78 mg /dL 0.60-1.30 Serum or plasma urea nitrogen/creatinine mass ratio 21 NRG Serum or plasma creatinine measurement with calculation of estimated glomerular filtration rate > NRG Serum or plasma glucose measurement (mass/volume) 205 mg/dL 70-105 Serum or plasma calcium measurement (mass/volume) 8.7 mg/dL 8.5-10.1 Serum or plasma total bilirubin measurement (mass/volume) 0.8 mg/dL 0.1-1.0 Serum or plasma alkaline phosphatase measurement (enzymatic activity/volume) 87 U/L 40-136 Serum or plasma aspartate aminotransferase measurement (enzymatic activity/ volume) 21 U/L 5-34 Serum or plasma alanine aminotransferase measurement (enzymatic activity/volume ) 28 U/L 0-55 Serum or plasma protein measurement (mass/volume) 7.5 g/dL 6.4-8.2 Serum or plasma albumin measurement (mass/volume) 3.8 g/dL 3.2-4.5 Serum or plasma C reactive protein measurement (mass/volume) - 05/27/16 00:16 Serum or plasma C reactive protein measurement (mass/volume) 5.51 mg/dL 0.00-0.50 Complete urinalysis with reflex to culture - 05/27/16 00:35 Urine color determination YELLOW NRG Urine clarity determination CLEAR NRG Urine pH measurement by test strip 5 5- 9 Specific gravity of urine by test strip 1.015 1.016-1.022 Urine protein assay by test strip, semi-quantitative 1+ NEGATIVE Urine glucose detection by automated test strip 3+ NEGATIVE Erythrocytes detection in urine sediment by light microscopy NEGATIVE NEGATIVE Urine ketones detection by automated test strip NEGATIVE NEGATIVE Urine nitrite detection by test strip NEGATIVE NEGATIVE Urine total bilirubin detection by test strip NEGATIVE NEGATIVE Urine urobilinogen measurement by automated test strip (mass/volume) NORMAL NORMAL Urine leukocyte esterase detection by dipstick NEGATIVE NEGATIVE Automated urine sediment erythrocyte count by microscopy (number/high power field) NONE NRG Automated urine sediment leukocyte count by microscopy (number/high power field ) NONE NRG Bacteria detection in urine sediment by light microscopy TRACE NRG Squamous epithelial cells detection in urine sediment by light microscopy 2-5 NRG Crystals detection in urine sediment by light microscopy NONE NRG Casts detection in urine sediment by light microscopy NONE NRG Mucus detection in urine sediment by light microscopy SMALL NRG Complete urinalysis with reflex to culture NO NRG Urine drug screening test - 05/27/16 00:35 Urine phencyclidine detection by screening method NEGATIVE NEGATIVE Urine benzodiazepines detection by screening method NEGATIVE NEGATIVE Urine cocaine detection NEGATIVE NEGATIVE Urine amphetamines detection by screening method POSITIVE NEGATIVE Urine methamphetamine detection by screening method POSITIVE NEGATIVE Urine cannabinoids detection by screening method NEGATIVE NEGATIVE Urine opiates detection by screening method NEGATIVE NEGATIVE Urine barbiturates detection NEGATIVE NEGATIVE Screening urine tricyclic antidepressants detection NEGATIVE NEGATIVE Urine methadone detection by screening method NEGATIVE NEGATIVE Urine oxycodone detection NEGATIVE NEGATIVE Urine propoxyphene detection NEGATIVE NEGATIVE CBC WITH AUTO DIFFERENTIAL - 06/18/16 06:04 BASOPHILS RELATIVE PERCENT 1.0 % 0.0-2.5 EOSINOPHILS RELATIVE PERCENT 2.9 % <=5.0 HEMATOCRIT 38.7 % 38.8-50.0 HEMOGLOBIN 12.8 g/dL 13.5-17.5 LYMPHOCYTES RELATIVE PERCENT 36.7 % 22.0- 49.0 MEAN CORPUSCULAR HEMOGLOBIN 29.3 pg 26.0- 34.0 MEAN CORPUSCULAR HEMOGLOBIN CONC 33.1 g/dL 31.0-37.0 MEAN CORPUSCULAR VOLUME 88.6 fL 81.2- 95.1 MONOCYTES RELATIVE PERCENT 7.6 % 2.0-9.0 NEUTROPHILS RELATIVE PERCENT 51.8 % 40.0- 75.0 NUCLEATED RED BLOOD CELLS 0 /100 <=0 PLATELET COUNT 377 10E9/L 150-450 RED BLOOD CELL COUNT 4.37 10E12/L 4.32- 5.72 RED CELL DISTRIBUTION WIDTH 13.0 % 11.8- 15.6 [id number] 8.0 10E9/L 3.5-10.5 0232360 2.93 10E9/L 0.90-2.90 0053117 0.61 10E9/L 0.30-0.90 2277080 0.23 10E9/L 0.05-0.50 [id number] 4.13 10E9/L 1.70-7.00 0519223 0.08 10E9/L 0.00-0.30 1995991 0 % COMPREHENSIVE METABOLIC PANEL - 06/18/16 06:04 ALBUMIN 3.6 g/dL 3.4-4.8 ALKALINE PHOSPHATASE 72 U/L 29-122 ALT 27 U/L 10-46 AST 23 U/L 16-37 BILIRUBIN,TOTAL 0.4 mg/dL 0.2-1.3 BUN BLOOD 17 mg/dL 6-20 CALCIUM 9.3 mg/dL 8.7-10.5 CHLORIDE 101 mmol/L 99-111 CO2 28 mmol/L 20-36 CREATININE 0.59 mg/dL 0.60-1.20 EGFR > mL/min >59 GLUCOSE 211 mg/dL 74-106 POTASSIUM 4.2 mmol/L 3.6-4.9 PROTEIN TOTAL 7.0 g/dL 6.4-8.3 SODIUM 137 mmol/L 136-145 LIPID PANEL - 06/18/16 06:04 CHOLESTEROL 170 mg/dL <=200 HDL CHOLESTEROL 46 mg/dL 40-90 LDL CHOLESTEROL 87 mg/dL NON-HDL CHOLESTEROL 124 mg/dL 0-129 TRIGLYCERIDE 183 mg/dL 0-149 HEMOGLOBIN A1C - 06/18/16 06:04 HEMOGLOBIN A1C 8.7 % <5.7 SEDIMENTATION RATE, MANUAL - 09/02/16 09:41 [id number] 26 mm/Hr <=15 COMPREHENSIVE METABOLIC PANEL - 09/02/16 09:41 ALBUMIN 3.5 g/dL 3.4-5.0 ALKALINE PHOSPHATASE 66 U/L 46-116 ALT 43 U/L 12-78 ANION GAP 10 AST 28 U/L 15-37 BILIRUBIN,TOTAL 0.3 mg/dL 0.2-1.0 BUN BLOOD 10 mg/dL 7-18 CALCIUM 8.8 mg/dL 8.5-10.1 CHLORIDE 104 mmol/L 98-107 CO2 27 mmol/L 21-32 CREATININE 0.80 mg/dL 0.60-1.30 EGFR > mL/min >59 GLUCOSE 190 mg/dL 66-99 POTASSIUM 4.5 mmol/L 3.5-5.1 PROTEIN TOTAL 7.2 g/dL 6.4-8.2 SODIUM 141 mmol/L 136-145 VITAMIN D2/D3 TOTAL - 09/02/16 09:41 VITAMIN D2/D3 TOTAL 13 ng/ml 30-100 LEVETRIACETAM (KEPPRA) - 09/02/16 09:41 KEPPRA 10.6 ug/mL 10.0 - 40.0 Encounters ACCT No. Visit Date/Time Discharge Status Pt. Type Provider Facility Loc./Unit Complaint [id number] 05/29/2014 11:18:00 05/29/2014 23: 59:59 [facility] Outpatient IVONNE GOMEZ DO [id number] 04/18/2014 08:54:00 04/18/2014 23: 59:59 [facility] Outpatient IVONNE GOMEZ DO [id number] 12/12/2013 11:41:00 12/12/2013 23: 59:59 [facility] Outpatient IVONNE GOMEZ DO [id number] 07/27/2013 15:10:00 07/27/2013 23: 59:59 [facility] BHUMI DUBOIS APRN [id number] 04/26/2013 08:21:00 04/26/2013 23: 59:59 [facility] Outpatient TRIP HERNANDEZ APRN
--- NOTE | 2016-09-10 19:39 | Diagnostic Imaging Report ---
INDICATION: Fell 4 hours ago. Hit shoulder. EXAMINATION: Left shoulder dated 09/10/2016 FINDINGS: Three views of the shoulder Linear density immediately adjacent to the greater tuberosity is noted which appears to represent likely calcific tendinitis, less likely small avulsion fracture fragment. The remaining humerus is unremarkable. The acromioclavicular joint demonstrates some narrowing and spurring. The visualized left lung is clear. IMPRESSION: 1. Degenerative findings as described with a linear density at the greater tuberosity nonspecific; see above discussion. Dictated by: Dictated on workstation # [id number]
--- NOTE | 2016-09-10 19:39 | Diagnostic Imaging Report ---
INDICATION: Fell about four hours ago. Right hand pain. EXAMINATION: Right hand dated 09/10/2016. FINDINGS: Three views of the hand. There is a fracture involving the distal aspect of the fifth metacarpal. This does not definitely extend into the adjacent intra-articular joint space. The fracture site demonstrates mild apex dorsal angulation. No definite other fractures are seen. Degenerative findings are seen throughout the mid carpal bones and at the first metacarpophalangeal joint with large spurs at this joint also noted. IMPRESSION: 1. Acute-appearing fracture at the distal aspect of the fifth metacarpal with remaining osseous structures demonstrating chronic change as discussed above. There is an osseous fragment at the dorsum of the distal interphalangeal joint of the fifth digit likely old, correlate for any point tenderness. Dictated by: Dictated on workstation # [id number]
--- NOTE | 2016-09-10 19:42 | Diagnostic Imaging Report ---
INDICATION: Fell about 4 hours ago. Hit shoulder. Wrist and hand pain. EXAMINATION: Right wrist and hand, 09/10/2016. FINDINGS: Three views of the hand and wrist. There is a fracture through the distal aspect of the fifth metacarpal. This appears fairly well aligned along its visualized aspects on this examination. Degenerative findings are seen throughout the mid carpal bones with spurring noted. Severe degenerative change is seen at the first metacarpophalangeal joint space. IMPRESSION: Acute appearing fracture involving the distal fifth metacarpal with other findings as described. Dictated by: Dictated on workstation # [id number]
--- NOTE | 2016-09-10 19:43 | Diagnostic Imaging Report ---
INDICATION: Fall, trauma. EXAMINATION: Left clavicle, 09/10/2016. FINDINGS: Two views of the clavicle. The acromioclavicular joint appears to be intact. Spurring is noted but no dislocations or fractures are visualized. The linear density at the greater tuberosity is seen and described on the separate shoulder films. IMPRESSION: No acute fracture along the clavicle with degenerative findings as discussed above. Dictated by: Dictated on workstation # [id number]
[2016-09-10] MEDS ORDERED: HYDR-3812 PO (21:10)
[2016-09-10 21:19] VITALS: BP 118/94
== END 2016-09-10 21:19 | disposition home or self-care (01) ==
LOC: EDUNIT# 17:32 → ER 17:36
DX: S62.336A Displaced fracture of neck of fifth metacarpal bone, right hand, initial encounter for closed fracture (principal); M25.512 Pain in left shoulder; E78.00 Pure hypercholesterolemia, unspecified; F32.9 Major depressive disorder, single episode, unspecified; E11.9 Type 2 diabetes mellitus without complications; M19.90 Unspecified osteoarthritis, unspecified site; I10 Essential (primary) hypertension; Z82.49 Family history of ischemic heart disease and other diseases of the circulatory system; W18.09XA Striking against other object with subsequent fall, initial encounter
CPT/HCPCS: 29125; 73000; 73030; 73110; 73130